=== PATIENT | male | born 1955 | race Caucasian/White ===

== ENCOUNTER 2022-01-28 13:17 | Emergency (ER) | payer BC ==
[~2022-01-28] VITALS: Ht 167.6 cm; Wt 75.9 kg
[2022-01-28 13:33] VITALS: TEMP 98.3
[2022-01-28 14:52] VITALS: BP 124/86; PULSE 79
== END 2022-01-28 14:40 | disposition home or self-care (01) ==
LOC: COL.ER 13:17
DX: Z20.3 Contact with and (suspected) exposure to rabies (principal); Z28.310 Unvaccinated for COVID-19